=== PATIENT | male | born 1990 | race African-American/Black ===

== ENCOUNTER 2018-05-28 20:12 | Inpatient (IN) | payer MEDICAID ==
[~2018-05-28] VITALS: Ht 170.2 cm; Wt 63.5 kg
[2018-05-28] MEDS ORDERED: KETOROLAC 60 MG/2 ML VIAL IM ONE (20:15)
[2018-05-28 20:22] VITALS: BP 129/83
--- NOTE | 2018-05-28 20:30 | NUR ---
PATIENT PRESENTS TO ED BY EMS. AAO X4. PT VERBALIZED AUDITORY HALLUCINATION; TELLING HIM TO KILL HIMSELF BY JUMPING IN FRONT A CAR OR DRUG OVERDOSE. PER PT " TOOK 6-8 XANAX, 3 TYLENOL-CODIENE, AND 1 DEPAKOTE." DENIES ALCOHOL AND DRUG USE. PT MUMBLING TO HIMSELF. SUSPICOUS OF MEDICAL PERSONNEL. VSS; PATIENT POSITIONED FOR COMFORT; HOB ELEVATED; BEDRAILS UP X2; BED DOWN. ERMD NOTIFIED. WILL CONTINUE TO MONITOR.
--- NOTE | 2018-05-28 20:55 | NUR ---
PT STATED THAT HE TOOK 8 TYLENOL TABLETS, WILL HOLD ORDERED TYLENOL PO UNTIL TYLENOL LAB LEVELS ARE RESULTED.
[2018-05-28] MEDS: ACETAMINOPHEN EXTRA STRENGTH 500 MG TAB PO ONE ×2 (21:00→21:23)
[2018-05-28 21:01] LABS: BASOPHILS % (AUTO) 0.8 % (0.0-2.0); EOSINOPHILS # (AUTO) 0.1 K/uL (0-0.4); EOSINOPHILS % (AUTO) 2.6 % (0.0-4.0); HEMATOCRIT 41.6 % (36-52); HEMOGLOBIN 13.9 g/dL (12.0-18.0); LYMPHOCYTES # (AUTO) 1.2 K/uL (2.0-11.5); LYMPHOCYTES % (AUTO) 25.8 % (20.5-51.1); MEAN CORPUSCULAR HEMOGLOBIN 31 pg (27-31); MEAN CORPUSCULAR HGB CONC 33 g/dL (33-37); MEAN CORPUSCULAR VOLUME 92.4 fL (80-94); MONOCYTES # (AUTO) 0.6 K/uL (0.8-1.0); MONOCYTES % (AUTO) 12.8 % (1.7-9.3); NEUTROPHILS # (AUTO) 2.7 K/uL (1.8-7.7); PLATELET COUNT (AUTO) 135 K/uL (140-450); RED BLOOD CELL COUNT(AUTO) 4.51 MIL/uL (4.20-6.10); RED CELL DISTRIBUTION WIDTH 13.6 % (11.6-13.7); WHITE BLOOD COUNT (AUTO) 4.7 K/uL (4.8-10.8)
[2018-05-28 21:10] LABS: APPEARANCE,URINE CLEAR (CLEAR); BILIRUBIN,URINE NEGATIVE (NEGATIVE); BLOOD, URINE NEGATIVE (NEGATIVE); COLOR,URINE YELLOW (YELLOW); LEUKOCYTE ESTERASE ,URINE NEGATIVE (NEGATIVE); NITRITE, URINE NEGATIVE (NEGATIVE); UGLUCOSE NEGATIVE (NEGATIVE)
[2018-05-28 21:13] LABS: ALBUMIN 3.8 g/dL (3.4-5.0); ASPARTATE AMINOTRANSFERASE 204 U/L (15-37); CARBON DIOXIDE 28.1 mmol/L (21-32); CHLORIDE 106 mmol/L (98-107); CREATININE 1.1 mg/dL (0.7-1.3); GFR ARICAN-AMERICAN 103 mL/min (>90); GLUCOSE 87 mg/dL (74-106); POTASSIUM 4.1 mmol/L (3.5-5.1); SODIUM SERUM 143 mmol/L (136-145); TOTAL BILIRUBIN 0.3 mg/dL (0.0-1.0); UREA NITROGEN, BLOOD 8 mg/dL (7-18)
[2018-05-28 21:14] LABS: ACETAMINOPHEN < 0.5 ug/ml (10-30); SALICYLATE < 2.8 mg/dL (2.8-20.0)
[2018-05-28 21:18] LABS: BARBITURATE, URINE NEG. ng/ml (NEG <=200); BENZODIAZEPINE, URINE NEG. ng/mL (NEG <=200); CANNABINOID, URINE NEG. ng/mL (NEG <=50); COCAINE, URINE NEG. ng/mL (NEG <=300); OPIATE, URINE NEG. ng/mL (NEG <=2000); PHENCYCLIDINE SCREEN,URINE NEG. ng/mL (NEG <=25)
--- NOTE | 2018-05-28 21:25 | NUR ---
PT'S TYLENOL LEVEL <0.5, ADMINISTERED TYLENOL PO WITH EDUCATION, VERBALIZED UNDERSTANDING, PT TOLERATED MED WELL.
--- NOTE | 2018-05-28 21:37 | NUR ---
PER TELEPYCH REQUEST SENT
--- NOTE | 2018-05-28 21:50 | NUR ---
[facility] CALL[facility], SPOKE WITH EDISON, PHARMACIST. DUE TO ELVEATED AST/ALT AND NO PMH OF LIVER DYSFUNCITON RECOMMENDATING 24 HOUR MUSCOMYST DOSE. 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 RECOMMENED VALPROIC ACID LEVELS Q4, IF AFTER ANY POSTIVE RESULTS TEST AMMONIA LEVELS. ERMD NOTIFED OF RECOMMENDATIONS.
[2018-05-28] MEDS ORDERED: ACETYLCYSTEINE IV PER PHARMACY 1 EA MISC MC SCH (21:55)
[2018-05-28] MEDS ORDERED: DOCUSATE SODIUM 100 MG GELCAP PO PRN (22:25)
[2018-05-28] MEDS ORDERED: ONDANSETRON 4 MG/2 ML VIAL IM/IVP PRN (22:25)
[2018-05-28] MEDS ORDERED: ACETYLCYSTEINE 20% (200 MG/ML) 200 MG/ML VIAL ONE (22:37)
[2018-05-28] MEDS ORDERED: ACETYLCYSTEINE IV 6000 MG/30 ML VIAL IV ONE ×2 (22:48→22:56)
--- NOTE | 2018-05-28 22:51 | NUR ---
CALLED NEY FROM PHARMACY [phone], NOTIFIED ABOUT ORDER FOR ACETYLCYSTEINE IV, WAS NOTIFIED THAT ORDER WILL BE DOSED BY PHARMACY.
[2018-05-28] MEDS ORDERED: DEXTROSE 5% IV SCH (23:00)
[2018-05-28] MEDS ORDERED: ACETYLCYSTEINE IV SCH (23:00)
[2018-05-28 23:02] LABS: PROTHROMBIN TIME 10.2 secs (10.8-13.4)
[2018-05-28] MEDS: DEXT 5% /NACL 0.9% 1,000 ML IV SCH (23:25)
--- NOTE | 2018-05-28 23:30 | NUR ---
Patient will be admitted to care of Dr Henry. Admited to [facility] Will go to room 109B. Belongings list completed. Report to LVN. JANET Felix at time of transport. Transfer of care at this time.
[2018-05-28 23:40] VITALS: BP 114/70
--- NOTE | 2018-05-28 23:40 | NUR ---
Admitted from ER TO TELEMETRY UNIT , with chief complaint of TYLENOL OVERDOSAGE , 5150. 27 y/o ,Male, Cooperative, AWAKE, A/OX4. RESPIRATION EVEN AND UNLABORED. IV OF ACETYLCYSTEINE 9800 MG IN 250 ML D5 INFUSING AT 247.3 ML/HR , RIGHT AC G22. NOTED DRYNESS AND SOME DISCOLORATION ON LEFT TOE, STATED PAIN IN BOTH FEET 4/10, STATED HE WAS FELICIA DOWN THE STREET BY POLICE. ADMITTED HE STILL HAVE SUICIDAL THOUGHTS. PLAN OF CARE FOR THE SHIFT DISCUSSED. VERBALIZED UNDERSTANDING.oriented to call light, bed, phone,television, bathroom, smoking policy,visiting hours, procedures, ID bracelet on. Belongings list checked.
[2018-05-29 00:08] LABS: CHOL/HDL RATIO 1.9 (1-4.5); FREE T4 (FREE THYROXINE) 0.67 ng/dL (0.76-1.46); MAGNESIUM 2.1 mg/dL (1.8-2.4); PHOSPHORUS 4.1 mg/dL (2.5-4.9); THYROID STIMULATING HORMONE 1.54 uIU/mL (0.34-3.74)
--- NOTE | 2018-05-29 00:45 | NUR ---
MADELYN FROM [facility] CALLED, LAB RESULTS FOR ACETAMINOPHEN, SALICYLATE AND VALPROIC LEVEL GIVEN, STATED THAT THE NEXT TEST FOR THESE SHOULD BE DONE 6 HOURS AFTER LAST TEST. CHARGE NURSE DAVIDSON INFORMED DR. DARNELL.
[2018-05-29] MEDS: DEXT 5% /NACL 0.9% 1,000 ML IV SCH ×4 (01:15→23:04)
--- NOTE | 2018-05-29 01:30 | NUR ---
SLEEPING COMFORTABLY IN BED.
[2018-05-29 04:00] VITALS: BP 112/115
[2018-05-29] MEDS ORDERED: ACETYLCYSTEINE IV SCH ×3 (04:00)
[2018-05-29] MEDS ORDERED: DEXTROSE 5% IV SCH ×3 (04:00)
--- NOTE | 2018-05-29 04:00 | NUR ---
STILL SLEEPING COMFORTABLY IN BED.
--- NOTE | 2018-05-29 06:15 | NUR ---
SERVER SUPPORT TECHNICIAN CAME AND DRAW BLOOD, COOPERATIVE.
--- NOTE | 2018-05-29 06:46 | NUR ---
IN BED AWAKE WITH CLOSED EYES, TALKING IN SOFT VOICE TO SELF.
[2018-05-29 07:11] LABS: BASOPHILS % (AUTO) 0.5 % (0.0-2.0); EOSINOPHILS # (AUTO) 0.1 K/uL (0-0.4); EOSINOPHILS % (AUTO) 2.9 % (0.0-4.0); HEMATOCRIT 39.9 % (36-52); HEMOGLOBIN 13.3 g/dL (12.0-18.0); LYMPHOCYTES # (AUTO) 0.9 K/uL (2.0-11.5); LYMPHOCYTES % (AUTO) 24.6 % (20.5-51.1); MEAN CORPUSCULAR HEMOGLOBIN 31 pg (27-31); MEAN CORPUSCULAR HGB CONC 34 g/dL (33-37); MEAN CORPUSCULAR VOLUME 92.4 fL (80-94); MONOCYTES # (AUTO) 0.6 K/uL (0.8-1.0); MONOCYTES % (AUTO) 17.6 % (1.7-9.3); NEUTROPHILS # (AUTO) 1.9 K/uL (1.8-7.7); NEUTROPHILS % (AUTO) 54.4 % (42.2-75.2); PLATELET COUNT (AUTO) 124 K/uL (140-450); RED BLOOD CELL COUNT(AUTO) 4.31 MIL/uL (4.20-6.10); RED CELL DISTRIBUTION WIDTH 13.8 % (11.6-13.7); WHITE BLOOD COUNT (AUTO) 3.5 K/uL (4.8-10.8)
--- NOTE | 2018-05-29 07:21 | NUR ---
RESTING COMFORTABLY IN BED, CONDITION REMAIN STABLE. NO AGITATION NOTED. ENDORSED TO AM SHIFT NURSE FOR CONTINUITY OF CARE.
[2018-05-29 07:22] LABS: POTASSIUM 3.9 mmol/L (3.5-5.1)
[2018-05-29 07:23] LABS: ANION GAP 13.7 (8-16); CARBON DIOXIDE 25.2 mmol/L (21-32); CREATININE 0.9 mg/dL (0.7-1.3)
[2018-05-29 07:28] LABS: TOTAL BILIRUBIN 0.3 mg/dL (0.0-1.0)
[2018-05-29 07:29] LABS: ACETAMINOPHEN 1.6 ug/ml (10-30); ALBUMIN 3.1 g/dL (3.4-5.0); ASPARTATE AMINOTRANSFERASE 128 U/L (15-37)
--- NOTE | 2018-05-29 07:30 | NUR ---
RECEIVED PT AAOX4. NO SOB NOTED. NO C/O PAIN AT THIS TIME. IV TO RT AC PATENT AND INTACT. CHEST CLEAR. ABDOMEN SOFT, BOWEL SOUNDS PRESENT. WITH SITTER AT THE BEDSIDE, PT IS ON 5150 HOLD. INSTRUCTED PT TO CALL FOR ASSISTANCE, CALL LIGHT WITHIN REACH, PT VERBALIZED UNDERSTANDING.
[2018-05-29 08:00] VITALS: BP 132/70
[2018-05-29 08:13] LABS: BILIRUBIN,DIRECT 0.1 mg/dL (0.0-0.3); VALPROIC ACID < 3 ug/ml (50-100)
[2018-05-29] MEDS ORDERED: OLANZapine 5 MG TAB PO SCH (09:00)
--- NOTE | 2018-05-29 09:00 | NUR ---
PT AWAKE. CALM. NO SUICIDAL THOUGHTS PER PT. EXTRA TUNA SANDWICH GIVEN PER PT'S REQUEST.
[2018-05-29] MEDS ORDERED: ACETYLCYSTEINE 20% (200 MG/ML) 200 MG/ML VIAL PO SCH ×2 (10:00→14:00)
[2018-05-29] MEDS: IBUPROFEN 800 MG TAB PO PRN ×2 (10:03→17:01)
[2018-05-29] MEDS: LACTOBACILLUS RHAMNOSUS GG 1 EACH CAP PO SCH (10:03)
--- NOTE | 2018-05-29 10:06 | NUR ---
PATIENT HAS BEEN SCREENED AND CATEGORIZED LOW NUTRITION RISK. PATIENT WILL BE SEEN WITHIN 7 DAYS OF ADMISSION. 06/04/[address]
--- NOTE | 2018-05-29 11:10 | NUR ---
PT RESTING. NO SOB NOTED. NO SIGNS OF PAIN.
[2018-05-29] MEDS ORDERED: LACTULOSE 20 GM/30 ML UDC PO SCH (13:15)
[2018-05-29 16:00] VITALS: BP 117/70
[2018-05-29] MEDS ORDERED: LORazepam 1 MG TAB PO ONE (16:30)
--- NOTE | 2018-05-29 16:59 | NUR ---
PT JUST WOKE UP AND STATED HE IS FEELING DEPRESSED AND ANXIOUS. DR. MORALES NOTIFIED. MEDICATED PT WITH ATIVAN PO ORDERED. WILL CONTINUE TO MONITOR PT.
--- NOTE | 2018-05-29 17:25 | NUR ---
PT SEEN BY DR. COBIAN PSYCHOLOGIST. PER DR. COBIAN, WILL CONTINUE TO MONITOR PT FOR SUICIDAL IDEATION, MAYBE PT WILL BE CLEARED TOMORROW OR THE NEXT DAY.
--- NOTE | 2018-05-29 18:00 | NUR ---
PT ASKED TO GIVE HIS SISTER A CALL AND ASK HER IF HE CAN STAY IN HER PLACE WHEN HE IS RELEASE FORM [facility] CALLED PT'S SISTER'S #: JOSHUA [phone], NO ANSWER (2X), NO PHONE VOICEMAIL. PT MADE AWARE, STATED TO TRY TO CALL HER AGAIN TOMORROW.
--- NOTE | 2018-05-29 18:55 | NUR ---
PT RESTING. NO SOB NOTED. NO COMPLAINTS MADE. NO SUICIDAL IDEATION NOTED AT THIS TIME. WILL ENDORSE TO NEXT SHIFT NURSE FOR CONTINUITY OF CARE.
--- NOTE | 2018-05-29 19:05 | NUR ---
RECD. RESTING IN BED, AWAKE, A/OX2-3, WITH SOME FORGETFULNESS. RESPIRATION EVEN AND UNLABORED. IV OF D5NS AT 100 ML/HR INFUSING, RIGHT AC G20. WHEN ASKED HOW HE IS STATED HE'S OK BUT STILL WITH DEPRESSION. PLAN OF CARE FOR THE SHIFT DISCUSSED. VERBALIZED UNDERSTANDING. DENIES PAIN 0/10.
--- NOTE | 2018-05-29 19:51 | NUR ---
AMBULATED TO TO VOID, BACK TO BED AFTER VOIDING.
--- NOTE | 2018-05-29 20:00 | NUR ---
Patient's Plan of Care was discussed and reviewed with WORKER'S COMPENSATION CLAIMS EXAMINER: JACKELINE COPELAND
--- NOTE | 2018-05-29 20:30 | NUR ---
STATED HE HAD LOOSE BM MODERATE AMOUNT THIS MORNING, INSTRUCTED TO CALL NURSE WHEN HE WILL HAVE ANOTHER BM, NOT TO FLUSH FOR NURSE TO SEE SO MD WILL BE INFORMED FOR MEDICATION. JUST HEAD IN UNDERSTANDING.
[2018-05-29] MEDS: OLANZapine 5 MG TAB PO SCH (21:06)
--- NOTE | 2018-05-29 21:09 | NUR ---
DUE PO MEDICATION GIVEN, COOPERATIVE.
--- NOTE | 2018-05-30 | NUR ---
STILL SLEEPING COMFORTABLY IN BED. VS STABLE.
[2018-05-30] MEDS ORDERED: ACETYLCYSTEINE 20% (200 MG/ML) 200 MG/ML VIAL PO SCH (02:00)
--- NOTE | 2018-05-30 02:20 | NUR ---
WOKE UP, AMBULATED TO BR TO VOID, BACK TO BED AFTER VOIDING AND WENT BACK TO SLEEP.
[2018-05-30] MEDS: DEXT 5% /NACL 0.9% 1,000 ML IV SCH ×2 (05:25→10:23)
[2018-05-30 06:00] VITALS: BP 111/60
[2018-05-30] MEDS ORDERED: INFLUENZA VIRUS VACCINE QUAD 0.5 ML SYR IMVAC PRN (06:15)
--- NOTE | 2018-05-30 06:50 | NUR ---
STATED HE HAD ANOTHER LOOSE BM, BUT UNABLE TO CALL NURSE DUE TO CALL LIGHT NOT WORKING. INFORMED RESIDENT ON DUTY WILL ORDER MEDICATION FOR PATIENT AND ALSO ORDER FOR PAIN MEDICATION, PATIENT STATED MOTRIN THAT HE HAD TAKEN YESTERDAY DOES NOT WORK FOR HIM.
--- NOTE | 2018-05-30 07:20 | NUR ---
CONDITION REMAIN STABLE. ENDORSED TO AM SHIFT NURSE FOR FOLLOW UP MEDICATIONS AND FOR CONTINUITY OF CARE.
--- NOTE | 2018-05-30 07:22 | NUR ---
RECD BEDSIDE REPORT FROM PARTS DATA WRITER RN. PT IS PACING IN ROOM. AOX2. MUMBLING TO SELF. STATES HE HAS SUICIDAL IDEATION. DOES NOT VOCALIZE SPECIFIC PLAN. RESPIRATIONS EVEN AND UNLABORED. DISCUSSED POC WITH PATIENT. SITTER AT BEDSIDE FOR SUICIDAL PRECAUTIONS. ALL SAFETY PRECAUTIONS IN PLACE, WILL CONTINUE TO MONITOR.
[2018-05-30 07:47] LABS: HEPATITIS A ANTIBODY IGM Negative (Negative); HEPATITIS B CORE AB TOTAL Negative (Negative); HEPATITIS B SURFACE ANTIBODY Reactive (.); HEPATITIS B SURFACE ANTIGEN Negative (Negative)
[2018-05-30 07:55] LABS: ANION GAP 11.2 (8-16); CREATININE 0.9 mg/dL (0.7-1.3); POTASSIUM 4.2 mmol/L (3.5-5.1)
[2018-05-30 08:00] VITALS: BP 133/75
[2018-05-30] MEDS: LACTOBACILLUS RHAMNOSUS GG 1 EACH CAP PO SCH (08:00)
[2018-05-30 08:23] LABS: BASOPHILS % (AUTO) 0.6 % (0.0-2.0); EOSINOPHILS # (AUTO) 0.1 K/uL (0-0.4); EOSINOPHILS % (AUTO) 2.7 % (0.0-4.0); HEMATOCRIT 40.2 % (36-52); HEMOGLOBIN 13.4 g/dL (12.0-18.0); LYMPHOCYTES # (AUTO) 0.9 K/uL (2.0-11.5); LYMPHOCYTES % (AUTO) 32.5 % (20.5-51.1); MEAN CORPUSCULAR HEMOGLOBIN 31 pg (27-31); MEAN CORPUSCULAR HGB CONC 34 g/dL (33-37); MEAN CORPUSCULAR VOLUME 93.1 fL (80-94); MONOCYTES # (AUTO) 0.5 K/uL (0.8-1.0); MONOCYTES % (AUTO) 16.6 % (1.7-9.3); NEUTROPHILS # (AUTO) 1.4 K/uL (1.8-7.7); NEUTROPHILS % (AUTO) 47.6 % (42.2-75.2); PLATELET COUNT (AUTO) 122 K/uL (140-450); RED BLOOD CELL COUNT(AUTO) 4.31 MIL/uL (4.20-6.10); RED CELL DISTRIBUTION WIDTH 13.6 % (11.6-13.7); WHITE BLOOD COUNT (AUTO) 2.9 K/uL (4.8-10.8)
[2018-05-30 08:29] LABS: ALBUMIN 3.1 g/dL (3.4-5.0); BILIRUBIN,DIRECT 0.1 mg/dL (0.0-0.3); TOTAL BILIRUBIN 0.4 mg/dL (0.0-1.0)
[2018-05-30 09:02] LABS: MAGNESIUM 1.9 mg/dL (1.8-2.4)
--- NOTE | 2018-05-30 09:03 | NUR ---
NOTIFIED DR. MCKEON THAT PT IS C/O 10 BACK PAIN AND STATES CURRENTLY ORDERED PAIN MED IS NOT EFFECTIVE.
[2018-05-30] MEDS ORDERED: KETOROLAC 30 MG/ML VIAL IVP PRN (09:10)
--- NOTE | 2018-05-30 11:47 | NUR ---
PATIENT REFUSED TO BE CONNECTED TO IVF. STARTED REMOVING IV TUBING HIMSELF. DISCONNECTED PT FROM IVF- IV SITE LEFT INTACT. ASKED DR. RUIZ FOR ORDER TO SALINE LOCK.
--- NOTE | 2018-05-30 12:11 | NUR ---
SAW PATIENT'S STOOL IN TOILET- FORMED, BROWN.
--- NOTE | 2018-05-30 15:04 | NUR ---
PT AMBULATING IN ROOM. SITTER AT BEDSIDE. ALL SAFETY PRECAUTIONS IN PLACE, WILL CONTINUE TO MONITOR.
[2018-05-30 16:00] VITALS: BP 131/83
--- NOTE | 2018-05-30 19:21 | NUR ---
ENDORSED POC TO SENIOR RESEARCH ANALYST RN. PT IN STABLE CONDITION.
--- NOTE | 2018-05-30 19:25 | NUR ---
RECEIVED PATIENT RESTING IN BED. NO SUICIDAL IDEATION NOTED. NO AGGRESSIVE BEHAVIOR NOTED. 5150 HOLD WITH 1:1 SITTER . ALL SAFETY PRECAUTION APPLIED. WILL CONTINUE TO MONITOR.
[2018-05-30 20:00] VITALS: BP 119/71
[2018-05-30] MEDS: OLANZapine 5 MG TAB PO SCH (20:35)
--- NOTE | 2018-05-30 21:00 | NUR ---
SEEN PATIENT TALKING TO DR. FOSTER IN THE ROOM. PATIENT WAS CALM WITH NO AGGRESSIVE BEHAVIOR NOTED. NO SIGN OF HOMICIDAL IDEATION. PATIENT WALKING AROUND BACK IN FORTH BEDSIDE HIS BED. 1:1 SITTER AT BEDSIDE. WILL CONTINUE TO MONITOR.
--- NOTE | 2018-05-30 21:00 | NUR ---
V/S TAKEN . SCHEDULE MEDICATION GIVEN TOLERATED WELL.
--- NOTE | 2018-05-31 | NUR ---
SEEN PATIENT RESTING. 1:1 SITTER AT BEDSIDE.
[2018-05-31] MEDS: DEXT 5% /NACL 0.9% 1,000 ML IV SCH (01:25)
--- NOTE | 2018-05-31 02:00 | NUR ---
1:1 SITTER AT BEDSIDE. NO SI/HI NOTED.NO AGGRESSIVE BEHAVIOR NOTED THROUGHOUT THE NIGHT. ALL NEEDS ATTENDED.
[2018-05-31 04:00] VITALS: BP 124/76
--- NOTE | 2018-05-31 04:00 | NUR ---
SEEN PATIENT RESTING WITH HOB ELEVATED. NO PLAN OF SI NOTED OR VERBALIZED AT THIS TIME. 1:1 SITTER FOR SAFETY. ALL NEEDS ATTENDED.
--- NOTE | 2018-05-31 07:07 | NUR ---
GAVE REPORT TO AM SHIFT RN AT BEDSIDE FOR CONTINUITY OF CARE. PATIENT IN STABLE CONDITION.
--- NOTE | 2018-05-31 07:08 | NUR ---
GOT BEDSIDE REPORT FROM SHAYNA BROUSSARD. PATIENT ON MED SURG AND STANDARD PRECAUTIONS IN PLACE. PATIENT AAOX4 AND ON ROOM AIR, WITH NO DISTRESS NOTED. SITTER AT BEDSIDE. SKIN INTACT. IV ON R AC 20 G, IV ASYMPTOMATIC PATENT AND INTACT. BED IN LOW POSITION, CALL LIGHT WITHIN REACH, SIDE RAILS X2 UP
[2018-05-31 08:00] VITALS: BP 125/80
[2018-05-31] MEDS ORDERED: OLAN5TAB30 PO (08:57)
[2018-05-31] MEDS: NAPROXEN 500 MG TAB PO SCH ×2 (09:00→20:20)
[2018-05-31] MEDS: LACTOBACILLUS RHAMNOSUS GG 1 EACH CAP PO SCH (09:09)
--- NOTE | 2018-05-31 09:10 | NUR ---
ADMINISTERED SCHEDULED MEDS. PATIENT TOLERATED WELL. REFUSED NAPROXEN BECAUSE PATIENT STATED HE STARTS "FEELING PULSING IN HIS FINGERTIPS."
[2018-05-31] MEDS: NACL 0.9% 1,000 ML IV SCH (09:55)
--- NOTE | 2018-05-31 09:57 | NUR ---
PATIENT TAKING A SHOWER
--- NOTE | 2018-05-31 12:11 | NUR ---
PATIENT SLEEPING, ON ROOM AIR, NO DISTRESS NOTED
--- NOTE | 2018-05-31 12:58 | NUR ---
PATIENT REFUSED BLOOD DRAW, WILL NOTIFY DOCTOR
--- NOTE | 2018-05-31 14:20 | NUR ---
PATIENT SLEEPING, ON ROOM AIR, NO DISTRESS NOTED
[2018-05-31 16:00] VITALS: BP 129/81
--- NOTE | 2018-05-31 17:00 | NUR ---
PATIENT PACING AROUND ROOM, ON ROOM AIR, NO COMPLAINTS AT THIS TIME
--- NOTE | 2018-05-31 19:11 | NUR ---
GAVE REPORT TO SHAYNA BETTENCOURT. PATIENT ENDORSED IN STABLE CONDITION
--- NOTE | 2018-05-31 19:15 | NUR ---
RECEIVED REPORT FROM DAY SHIFT NURSE. PT LYING IN BED, AWAKE AND QUIET. NO SUICIDAL IDEATION AT THIS TIME. NO C/O PAIN OR SOB. IV TO RIGHT AC #20G, NS AT 10 ML/HR INFUSING WELL. SKIN INTACT. 5150 HOLD. 1:1 SITTER.
--- NOTE | 2018-05-31 21:00 | NUR ---
DUE MEDS GIVEN. PT CALM AND COOPERATIVE. 1:1 SITTER.
--- NOTE | 2018-05-31 23:15 | NUR ---
PT SITTING ON BED, EATING SANDWICH. PT DENIES SUICIDAL IDEATION. NEEDS MET AT THIS TIME.
[2018-06-01] VITALS: BP 102/62
--- NOTE | 2018-06-01 02:00 | NUR ---
PT SLEEPING. NO S/S OF RESP DISTRESS. NO S/S OF PAIN OR DISCOMFORT.
--- NOTE | 2018-06-01 04:45 | NUR ---
PT SLEEPING BUT WAKES EASILY. NO S/S OF PAIN OR SOB. IVF INFUSING WELL.
--- NOTE | 2018-06-01 06:26 | NUR ---
ENDORSED PT TO ANOTHER FLOWER MAKER NURSE. PT IN STABLE CONDITION.
--- NOTE | 2018-06-01 06:27 | NUR ---
RECEIVED BEDSIDE REPORT FROM SHAYNA BETTENCOURT FOR CONTINUOUS OF CARE. SITTER AT BEDSIDE.
--- NOTE | 2018-06-01 07:19 | NUR ---
ENDORSED PT TO DAY SHIFT NURSE AMANDO, PT IN STABLE CONDITION, SITTER AT BEDSIDE.
--- NOTE | 2018-06-01 07:20 | NUR ---
RECEIVED BEDSIDE REPORT FROM IRON CUTTER NURSE. PATIENT IS RESTING ON BED AT THIS TIME. AOX 3 TO PERSON, PLACE, AND TIME. DENIES PAIN AND SOB. DENIES OF SUICIDAL IDEATION AT THIS TIME. RESPIRATION EVEN AND UNLABORED, ON RA. NO SIGNS OF DISTRESS NOTED. IV ON RIGHT AC 22G, DRY AND INTACT, NS AT 10 ML/HR INFUSING WELL. SKIN DRY AND INTACT. ABLE TO AMBULATE WITH STEADY GAIT. CONTINENT. SAFETY MEASURES IN PLACE. ON 5150 HOLD WITH 1:1 SITTER.
[2018-06-01 07:28] LABS: BASOPHILS % (AUTO) 0.6 % (0.0-2.0); EOSINOPHILS # (AUTO) 0.1 K/uL (0-0.4); EOSINOPHILS % (AUTO) 1.9 % (0.0-4.0); HEMATOCRIT 41.7 % (36-52); HEMOGLOBIN 13.9 g/dL (12.0-18.0); LYMPHOCYTES # (AUTO) 1.2 K/uL (2.0-11.5); LYMPHOCYTES % (AUTO) 29.1 % (20.5-51.1); MEAN CORPUSCULAR HEMOGLOBIN 31 pg (27-31); MEAN CORPUSCULAR HGB CONC 33 g/dL (33-37); MEAN CORPUSCULAR VOLUME 92.6 fL (80-94); MONOCYTES # (AUTO) 0.6 K/uL (0.8-1.0); MONOCYTES % (AUTO) 13.7 % (1.7-9.3); NEUTROPHILS # (AUTO) 2.2 K/uL (1.8-7.7); NEUTROPHILS % (AUTO) 54.7 % (42.2-75.2); PLATELET COUNT (AUTO) 108 K/uL (140-450); RED CELL DISTRIBUTION WIDTH 13.6 % (11.6-13.7)
[2018-06-01 07:32] LABS: ANION GAP 13.3 (8-16); CARBON DIOXIDE 26.7 mmol/L (21-32); CREATININE 0.9 mg/dL (0.7-1.3)
[2018-06-01 07:40] LABS: MAGNESIUM 2.1 mg/dL (1.8-2.4); PHOSPHORUS 4.7 mg/dL (2.5-4.9)
[2018-06-01 08:00] VITALS: BP 125/72
[2018-06-01] MEDS: NAPROXEN 500 MG TAB PO SCH (08:07)
[2018-06-01] MEDS: LACTOBACILLUS RHAMNOSUS GG 1 EACH CAP PO SCH (08:07)
--- NOTE | 2018-06-01 08:12 | NUR ---
ADMINISTERED MEDS PER MD ORDER, PATIENT TOLERATED WELL. IV WAS INFILTRATED. D/C IV AND IV CANNULA INTACT AND COMPLETED. NO BLEEDING AT IV SITE. PATIENT TOLERATED WELL. SAFETY MEASURES IN PLACE WITH 1:1 SITTER.
[2018-06-01] MEDS: NACL 0.9% 1,000 ML IV SCH (09:55)
--- NOTE | 2018-06-01 09:55 | NUR ---
PATIENT REFUSED TO START IV ACCESS. UNABLE TO ADMINISTER IVF. MD AND DISTRIBUTION SALES REPRESENTATIVE AWARE.
[2018-06-01] MEDS ORDERED: OLAN5TAB30 PO (10:10)
--- NOTE | 2018-06-01 10:20 | NUR ---
DR MORELAND AT BEDSIDE DISCUSSING DISHCARGE, PT REFUSING TO BE DISCHARGED, PT UPSET AND AGITATED, PT STATES HE HAS NO WHERE TO GO, HE WANTS TO GO TO [facility], PT CLEARED BY [facility], 5150 , MEDICALLY CLEARED, NO NEED FOR HOSPITALIZATION PER DR MORELAND, DR MORELAND CALLED HIS SISTER ON THE PHONE, SISTER UNABLE TO ACQUISITION CONSULTANT OR TAKE PATIENT HOME, SISTER ASKED FOR BUS PASS TO BE GIVEN TO PATIENT, PT SPOKE TO SISTER ON THE PHONE, PATIENT'S BELONGINGS RETURNED TO HIM FROM SECURITY, PT UP AMBULATING AROUND THE HALLWAY WITH STEADY GAIT, PT PROVIDED WITH A SANDWICH, BUS PASS, PT REFUSED TO WAIT FOR DISCHARGE PAPER WORK TO BE COMPLETED TO SIGN, PT OFFERED LUNCH BOX FROM KITCHEN BUT DOES NOT WANT TO WAIT, RX GIVEN TO PATIENT, PT MADE AWARE OF PHARMACY NEAR BY, PT ESCORTED OUT THE FRONT LOBBY BY SECURITY AT THIS TIME.
== END 2018-06-01 10:20 | disposition home or self-care (01) | DRG 52 ==
LOC: MED 20:12 → MTU 22:54
PROVIDERS: ADMIT General Practice; ATTEND General Practice
DX: G92 Toxic encephalopathy (principal); D69.6 Thrombocytopenia, unspecified; F20.9 Schizophrenia, unspecified; R45.851 Suicidal ideations; F22 Delusional disorders; B35.3 Tinea pedis; I10 Essential (primary) hypertension; F17.210 Nicotine dependence, cigarettes, uncomplicated; F41.9 Anxiety disorder, unspecified; F31.9 Bipolar disorder, unspecified; D72.819 Decreased white blood cell count, unspecified; E02 Subclinical iodine-deficiency hypothyroidism; F29 Unspecified psychosis not due to a substance or known physiological condition; Z59.0 Homelessness; Z88.8 Allergy status to other drugs, medicaments and biological substances; Z79.01 Long term (current) use of anticoagulants
CPT/HCPCS: 36415; 71045; 76700; 80048; 80053; 80076; 80305; 81003; 82140; 82150; 83036; 83605; 83690; 83735; 83880; 84100; 84439; 84443; 85025; 85610; 85730; 86704; 86706; 86708; 86709; 86803; 87081; 87340; 93005; 96374; 99285; G0480; G0482; J0132; J1885; J7030; J7042; J7060; J7608; Q0092